=== PATIENT | male | born 1940 | race Caucasian/White ===

== ENCOUNTER 2024-05-07 10:57 | Outpatient (CLI) | payer MEDICARE, OTHER ==
[2024-05-07 15:11] LABS: ALBUMIN 4.3 g/dL (3.2-5.5); ALBUMIN/GLOBULIN RATIO 1.8 (1.0-2.2); BILIRUBIN,TOTAL 0.8 mg/dL (0.2-1.0); CREATININE 1.2 mg/dL (0.6-1.3); POTASSIUM 4.1 mmol/L (3.5-4.5); TOTAL PROTEIN 6.7 g/dL (6.4-8.9)
== END 2024-05-07 10:58 | disposition home or self-care (01) ==
LOC: LAB.S 10:57
PROVIDERS: ATTEND Internal Medicine
DX: I10 Essential (primary) hypertension (principal)
CPT/HCPCS: 36415; 80053

== ENCOUNTER 2024-07-15 09:45 | Emergency (ER) | payer MEDICARE, OTHER ==
[2024-07-15] MEDS: TETANUS/DIPHTHERIA/PERTUSSIS 0.5 ML SYRINGE IM ONE (10:31)
--- NOTE | 2024-07-15 10:36 | ED Physician Documentation ---
History of Present Illness - Stated complaint Stated Complaint: GLF - Chief complaint Chief Complaint: Trauma Hd/Nk - History obtained from History obtained from: Patient - History of Present Illness Timing: Last night Pain level max: 5 Pain level now: 1 - Additonal information Additional information: Patient is an 83-year-old male who states that he was walking on a trail last night when he tripped and fell. He is unsure what he struck his head on but suffered an abrasion to the right scalp. He is not on blood thinners. No loss of consciousness. No neck or back pain. No numbness or tingling. No headache. Last tetanus shot was approximately 10 years ago. No seizure activity. No vomiting. Review of Systems Constitutional: denies: Fever, Chills GI: denies: Vomiting, Diarrhea Skin: denies: Rash Musculoskeletal: denies: Neck pain, Back pain Neurologic: denies: LOC PD PAST MEDICAL HISTORY - Past Medical History Past Medical History: Yes Cardiovascular: High cholesterol - Past Surgical History Past Surgical History: Yes General: Other HEENT: Cataracts - Allergies Allergies/Adverse Reactions: Allergies Allergy/AdvReac Type Severity Reaction Status Date / Time No Known Drug Allergies Allergy Verified 07/15/24 09:53 - Social History Does the pt smoke?: No Smoking Status: Never smoker Does the pt drink ETOH?: No Does the pt have substance abuse?: No - Immunizations Immunizations are current?: Yes PD ED PE NORMAL - Vitals Vital signs reviewed: Yes - General General: Alert and oriented X 3, No acute distress - HEENT HEENT: PERRL, Moist mucous membranes, Other (Abrasion to the right scalp, frontal aspect. No palpable skull fractures. No hematoma.) - Neck Neck: Supple, no meningeal sign - Cardiac Cardiac: RRR, Strong equal pulses - Respiratory Respiratory: No respiratory distress, Clear bilaterally - Abdomen Abdomen: Soft, Non tender, Non distended - Derm Derm: Warm and dry - Extremities Extremities: No edema - Neuro Neuro: Alert and oriented X 3 - Psych Psych: Normal mood, Normal affect Results - Vitals Vitals: Vital Signs - 24 hr 07/15/24 09:53 Temperature 36.5 C Heart Rate 61 Respiratory 16 Rate Blood Pressure 134/72 H O2 Saturation 100 - Rads (name of study) head ct Relevant Findings:: Final report received, See rad report PD Medical Decision Making - ED course Complexity details: reviewed results, re-evaluated patient, considered differential, d/w patient ED course: 83-year-old male status post a ground-level fall yesterday. No acute findings on head CT. Wounds were cleansed and bandaged. Tdap given. No lacerations to repair. Warnings of infection and instructions on wound care given at bedside. Also counseled on how to minimize scarring. Patient counseled regarding signs and symptoms for which I believe and urgent re-evaluation would be necessary. Patient with good understanding of and agreement to plan and is comfortable going home at this time This document was made in part using voice recognition software. While efforts are made to proofread this document, sound alike and grammatical errors may occur. Departure - Departure Disposition: 01 Home, Self Care Clinical Impression: Abrasion Closed head injury Qualifiers: Encounter type: initial encounter Qualified Code(s): S09.90XA - Unspecified injury of head, initial encounter Condition: Good Instructions: ED Abrasion, ED Head Injury Closed Follow-Up: Haider Guerrero MD [Primary Care Provider] - Comments: Your head CT does not show any acute abnormalities today. Your abrasion was cleansed and dermabond applied Please follow-up with your doctor as needed for any further care. Please return if you worsen. You are given a tetanus shot today as well. Forms: PCP List
--- NOTE | 2024-07-15 10:56 | CT Report ---
PROCEDURE: Head WO INDICATIONS: fall, head injury TECHNIQUE: Helical axial CT of the brain was obtained without contrast and reformatted in multiple p lanes. Radiation dose reduction was achieved using automated exposure control or adjustment of mA and /or kV according to patient size. COMPARISON: None FINDINGS: CSF spaces: Ventricles are appropriate in size and position. No hydrocephalus. Basal cisterns unre markable. Brain: No midline shift. No intracranial masses or hemorrhage. Castañeda-white matter interface is norm al. Skull and face: Calvarium and skull base are unremarkable without suspicious lesion. Sinuses: Visualized sinuses and mastoids are clear. IMPRESSION: Unremarkable CT of the brain Reviewed by: Josesito Almonte MD on 07/15/2024 9:55 AM JESSI Approved by: Josesito Almonte MD on 07/15/2024 9:55 AM [id number] Station ID: [id number]
[2024-07-15 11:13] VITALS: BP 138/68; O2SAT 99
== END 2024-07-15 11:06 | disposition home or self-care (01) ==
LOC: ED 09:45
DX: S00.01XA Abrasion of scalp, initial encounter (principal); W01.0XXA Fall on same level from slipping, tripping and stumbling without subsequent striking against object, initial encounter; Y93.01 Activity, walking, marching and hiking; Z23 Encounter for immunization
CPT/HCPCS: 90471; 99283; 99284